=== PATIENT | female | born 1995 | race Two or more races ===

== ENCOUNTER 2018-05-01 18:02 | Emergency (ER) | payer BC, OTHER ==
[~2018-05-01] VITALS: Ht 167.6 cm; Wt 85.8 kg
[2018-05-01 18:07] VITALS: BP 137/82
== END 2018-05-01 19:19 ==
LOC: ED 19:13
DX: S46.911A Strain of unspecified muscle, fascia and tendon at shoulder and upper arm level, right arm, initial encounter (principal); V49.09XA Driver injured in collision with other motor vehicles in nontraffic accident, initial encounter; Y93.89 Activity, other specified; Y92.89 Other specified places as the place of occurrence of the external cause; Y99.8 Other external cause status
CPT/HCPCS: 99283